=== PATIENT | male | born 2000 | race Caucasian/White ===

== ENCOUNTER 2020-06-10 13:46 | Outpatient (REF) | payer OTHER, SELFPAY | END 2020-06-10 13:47 | disposition home or self-care (01) | LOC: HO.LAB 13:46 | PROVIDERS: Visit Provider Internal Medicine | DX: Z20.828 Contact with and (suspected) exposure to other viral communicable diseases (principal) | CPT/HCPCS: 87635 ==

== ENCOUNTER 2023-02-04 16:27 | Emergency (ER) | payer MEDICAID, SELFPAY ==
--- NOTE | ~2023-02-04 | XR_ITS ---
EXAMINATION: XR HAND, RIGHT CLINICAL INFORMATION: Laceration COMPARISON: None available. TECHNIQUE: PA, lateral, and oblique views of the right hand. FINDINGS: Negative for acute fracture or dislocation. No radiopaque foreign body is seen. XR/XR hand RT 2V IMPRESSION: No acute bony finding.
[2023-02-04 16:40] VITALS: BP 110/70; PULSE 77; O2SAT 99
[2023-02-04 18:13] VITALS: BP 105/64; PULSE 64; RESP 18; TEMP 36.8; O2SAT 99; BMI 19.4
[2023-02-04] MEDS: Lidocaine HCl 1 % MPF 2 ML VIAL 4 ML INFILTRATI (19:53)
--- NOTE | 2023-02-04 19:59 | ED.GENADULT ---
HPI - General Adult General Chief complaint: Wound/Laceration Stated complaint: finger laceration Time Seen by Provider: 02/04/23 19:48 Source: patient, RN notes reviewed and old records reviewed Mode of arrival: EMS Limitations: no limitations History of Present Illness HPI narrative: 22-year-old male presents for a laceration to his right index finger He reports that he was trying to remove a dent from his car He accidentally sliced his right index finger on a piece of metal He reports that his tetanus was up-to-date as of last year He reports mild pain No other injuries No other complaints or concerns at this time Related Data Allergies Allergy/AdvReac Type Severity Reaction Status Date / Time No Known Allergies Allergy Verified 02/04/23 19:49 Review of Systems Integumentary/Breasts: Comments: Right index finger laceration PMFSH Social History Social History Advance Directives: No Advance Directives Information Provided: No Physical Exam ED Vital Signs: Vital Signs - 24 hr 02/04/23 18:13 Temperature 98.3 F Pulse Rate 64 Respiratory Rate 18 Blood Pressure 105/64 Pulse Oximetry 99 Oxygen Delivery Method Room Air BMI result Body Mass Index 19.4 Const General: healthy appearing, comfortable, no acute distress, alert and awake Nutritional Appearance: well nourished Orientation/consciousness: patient oriented x3 HENMT Head: Yes normocephalic and Yes atraumatic Eyes Eyelids: Yes eyelids normal Conjunctivae: conjunctivae normal Sclerae: sclerae normal Corneas: corneas normal Pupils: Equal, round and reactive pupils present EOM: EOMs intact bilaterally Resp Effort & Inspection: normal respiratory effort, able to speak in complete sentences and not labored Skin Other: Patient has a small, superficial, linear laceration along the right 2nd finger PIP joint on the radial surface. Approximately 2 cm. No active bleeding General skin exam: no rashes or lesions noted and elasticity normal Neuro General: patient oriented x3 Cranial nerves: Yes Equal, round and reactive pupils present and Yes Bilaterally intact EOM present Cognition (Neuro): normal cognition Extrem Other: Moving all extremities well without any obvious deformities Medications Administered Discontinued Medications Generic Name Dose Route Start Last Admin Trade Name Freq PRN Reason Stop Dose Admin Lidocaine HCl 4 ml 02/04/23 19:49 02/04/23 19:53 Lidocaine Hcl 1 % Mpf 2 Ml Vial INFILTRATI 02/04/23 19:50 4 ml ONCE ONE Administration Procedures Laceration Laceration 1: Site: hand (Right index finger) Side (If applicable): right Size (cm): 2 Description: linear Depth: simple, single layer Local Anesthetic: lidocaine 1% Amount of anesthesia used (mL): 1 Pre-repair: wound explored and irrigated extensively Skin layer closed with: nylon Size (cm): 4-0 Number of sutures: 3 Technique: simple, interrupted Medical Decision Making Medical Decision Making MDM Narrative: Patient has a small, 2 cm laceration that will require closure. X-ray shows no evidence of fracture or retained foreign body. The wound will be cleaned and closed, see procedure note Differential Diagnosis Laceration Skin tear Puncture wound Abrasion Discharge Plan Discharge Clinical Impression: Laceration Patient Disposition: Home, Self-Care Instructions: Laceration (ED) Additional Instructions: Your sutures can be removed in 7-10 days. You had 3 sutures placed Keep the area clean and dry Use ibuprofen/Tylenol for your pain You may apply topical antibiotic
[2023-02-04 21:12] VITALS: BP 108/70; PULSE 58; RESP 16; TEMP 36.6; O2SAT 100
== END 2023-02-04 21:17 | disposition home or self-care (01) ==
PROVIDERS: Emergency Provider Internal Medicine
DX: S61.210A Laceration without foreign body of right index finger without damage to nail, initial encounter (principal); M79.641 Pain in right hand; W26.9XXA Contact with unspecified sharp object(s), initial encounter; Y93.9 Activity, unspecified; Y92.9 Unspecified place or not applicable; Y99.9 Unspecified external cause status
CPT/HCPCS: 12041; 73120; 99284